=== PATIENT | female | born 1970 | race African-American/Black ===

== ENCOUNTER 2016-08-14 06:10 | Inpatient (IN) | payer OTHER ==
[2016-08-10 17:06] VITALS: BMI 29.2; BMI 64.0
--- NOTE | 2016-08-13 20:34 | PREOPHP ---
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 The patient has bee n having still abnormal Pap smears with the last one with ____ LSIL with nondetected HPV. This emma ent has been complaining of intractable pelvic pain and bleeding. She also has been complaining of pelvic pressure and inability to run, laugh, cough without losing urine. This patient was evaluated , and she was found to have fibroid uterus along with a pelvic prolapse which is grade III. The pat ient also complains of constipation and intractable bleeding where she has very heavy periods with c lots and intermittent bleeding, spotting and pelvic pain. This patient does not want to use c ontrol pills. She has tried different things without alleviation of her pain. She has tried antibi otics as well and control pills, and she would like a permanent solution. The patient was gamal luated and was offered a vaginal hysterectomy with a right salpingectomy if possible since the previ ous left tubal was excised and posterior repair. The patient was advised for a vaginal total hyster ectomy with right salpingectomy and posterior repair, possible ARABELLA in case of difficulties to remove the uterus. There is no bladder lift since we think that the pressure of the uterus on the bladder is creating the incontinence. We will see in the future if she needs it or not. At this time, we will only do the uterus and repair the rectocele. The patient is on hydrochlorothiazide. 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 PAST HISTORY: Fibroid uterus, prolapsed uterus and tubal ligation and exploratory laparotomy. Othe rwise, she had a negative history. Blood pressure is being treated for a while with only diuretics. ALLERGIES: SHE HAS NO ALLERGIES. SOCIAL HISTORY: No history of drugs, smoking or drinking. FAMILY HISTORY: Hypertension. PHYSICAL EXAMINATION: VITAL SIGNS: The patient's vital signs are stable with a blood pressure 120/80. She weighs 182. S he is 5 feet 7 inches. Pulse is 80. She is afebrile. HEAD AND NECK: Normal. CHEST: Clear. HEART: Normal sinus rhythm. LUNGS: Clear. BREASTS: Soft, nontender. No masses. ABDOMEN: Soft, nontender. No masses. PELVIC: ____ vaginal prolapse of the uterus and rectocele with constipation and mild incontinence a nd intractable pain. EXTREMITIES: Normal with normal pulses and no edema. DIAGNOSES: 1. Pelvic prolapse. 2. Intractable pelvic pain and bleeding. 3. Mild incontinence. 4. Rectocele. 5. Constipation. PLAN: She is undergoing a vaginal total hysterectomy, possible right salpingectomy, posterior repai r and possible ARABELLA. She has been advised of the possible risks and possible complications of the pr ocedure with her alternatives and options. Written information was provided. She had no more quest ions and agreed to go ahead with the procedure with full understanding and no more questions. Dictated By: AMITA VICENTE/BAM Conf#: [id number] DID#: [id number]
[~2016-08-14] VITALS: Ht 167.6 cm; Wt 78.8 kg
[2016-08-14] VITALS (18 sets, daily range): BP systolic 101–164; BP diastolic 57–90; PULSE 62–96; RESP 15–20; Ht 167.6 cm; Wt 78.8 kg
[~2016-08-14 06:10] MED LIST: BUPIVACAINE 0.25%/EPI (SDV) 30 ML INJ INJ ONE; CEFAZOLIN 2 GM/50 ML (PMX) 50 ML IVPB ONE; HYDR12.58 PO
[2016-08-14] MEDS ORDERED: BUPIVACAINE 0.25%/EPI (SDV) 30 ML INJ ONE (06:52)
[2016-08-14] MEDS ORDERED: CEFAZOLIN 2 GM/50 ML (PMX) 50 ML IVPB SCH (07:00)
[2016-08-14] MEDS ORDERED: NEOSTIGMINE 3 MG/3 ML SYRINGE ONE ×2 (07:37→10:04)
[2016-08-14] MEDS ORDERED: SUCCINYLCHOLINE CHLORIDE 100 MG/5 ML SYG IV ONE (07:37)
[2016-08-14] MEDS ORDERED: MEPERIDINE 100 MG INJ ONE (07:37)
[2016-08-14] MEDS ORDERED: GLYCOPYRROLATE 0.4 MG INJ ONE ×2 (07:37→10:04)
[2016-08-14] MEDS ORDERED: PROPOFOL 20 ML ONE (07:37)
[2016-08-14] MEDS ORDERED: LIDOCAINE 2% (SDV) 5 ML INJ ONE (07:37)
[2016-08-14] MEDS ORDERED: ROCURONIUM 50 MG INJ ONE (07:37)
[2016-08-14] MEDS ORDERED: ONDANSETRON 4 MG INJ ONE (07:42)
[2016-08-14] MEDS ORDERED: CEFAZOLIN 1 GM INJ ONE (07:42)
[2016-08-14] MEDS ORDERED: METOCLOPRAMIDE 10 MG INJ ONE (07:42)
[2016-08-14] MEDS ORDERED: LABETALOL HCL 20MG INJ IV PRN (09:00)
[2016-08-14] MEDS ORDERED: morphine (1 MG/ML) 10ML SYRINGE IV PRN ×2 (09:00)
[2016-08-14] MEDS ORDERED: HYDROmorphONE (0.2 MG/ML) 10ML SYG IV PRN ×2 (09:00)
[2016-08-14] MEDS ORDERED: hydrALAzine 20 MG INJ IV PRN (09:00)
[2016-08-14] MEDS ORDERED: ONDANSETRON 4 MG INJ IV PRN (09:00)
[2016-08-14] MEDS ORDERED: EPHEDrine SULFATE 50 MG/5 ML SYG IV PRN (09:00)
[2016-08-14] MEDS ORDERED: MEPERIDINE 25 MG INJ IV PRN (09:00)
[2016-08-14] MEDS ORDERED: DIPHENHYDRAMINE 50 MG INJ IV PRN (09:00)
[2016-08-14] MEDS ORDERED: METOCLOPRAMIDE 10 MG INJ IV PRN (09:00)
[2016-08-14] MEDS ORDERED: MIDAZOLAM 1 MG/ML 2 ML INJ IV PRN (09:00)
[2016-08-14] MEDS ORDERED: FENTAnyl 50 MCG/ML VIAL IV PRN ×2 (09:00)
--- NOTE | 2016-08-14 10:14 | OPR ---
Date/Time of Note Date/Time of Note DATE: 08/14/16 TIME: 10:11 Operative Report Procedure Date: August 14, 2016 Preoperative Diagnosis intractable pelvic pain and b;eeding pelvic prolapse mild urinary incontinence large rectocele constipation Postoperative Diagnosis same Surgeon: AMITA SANTOYO MD social and human services assistant: NAMRATA BUTLER MD Anesthesia: general Anesthesiologist: EVANGELINA OCHOA MD Estimated Blood Loss: 10 - 50 ml's Complications: None Pt Condition Post Procedure: stable Disposition: PACU AMITA SANTOYO MD August 14, 2016 10:14
[2016-08-14] MEDS ORDERED: HYDROCODONE/APAP (5/325) TAB PO PRN (10:30)
[2016-08-14] MEDS ORDERED: ZOLPIDEM 5 MG TAB PO PRN (10:30)
[2016-08-14] MEDS ORDERED: BISACODYL (EC) 5 MG TAB PO PRN (10:30)
[2016-08-14] MEDS ORDERED: DIPHENHYDRAMINE 50 MG CAP PO PRN (10:30)
[2016-08-14] MEDS: KETOROLAC 30 MG INJ IV SCH ×3 (10:30→21:33)
[2016-08-14] MEDS ORDERED: HYDROmorphONE 1 MG/ML SYG IV PRN (10:30)
[2016-08-14] MEDS: METOCLOPRAMIDE 10 MG TAB PO SCH ×2 (11:12→17:08)
[2016-08-14] MEDS: LACTATED RINGER'S 1,000 ML IV SCH ×2 (11:13→17:41)
--- NOTE | 2016-08-14 11:13 | OPR ---
DATE OF OPERATION: 08/14/2016 PREOPERATIVE DIAGNOSES: 1. Intractable pelvic pain and bleeding. 2. Pelvic prolapse. 3. Mild urinary incontinence. 4. Large rectocele. 5. Constipation. POSTOPERATIVE DIAGNOSES: 1. Intractable pelvic pain and bleeding. 2. Pelvic prolapse. 3. Mild urinary incontinence. 4. Large rectocele. 5. Constipation. PROCEDURE PERFORMED: Vaginal total hysterectomy, posterior colporrhaphy. SURGEON: Amita Brown MD WHIP SAWYER: Wayne Pacheco MD ANESTHESIOLOGIST: Nikunj Ribeiro MD ANESTHESIA: General. COMPLICATIONS: None. DESCRIPTION OF PROCEDURE: The patient was given general anesthesia, placed in the lithotomy positio n. The perineal and vaginal areas were prepped and draped and a Leslie catheter was placed in the bl adder. The vaginal speculum was applied. There was a very large rectocele and the uterus was prola psed, grade III to IV. There was a large cervix and the uterus retroverted with large fibroids. Th e adnexa were nonpalpable. The cervix was held with John clamps and a circular incision was made a t the cervicovaginal junction with Marcaine solution with epinephrine. The anterior cul-de-sac was found. Then, the posterior cul-de-sac was found. The cardinal ligaments and uterosacral ligaments were clamped with the LigaSure instrument and burned and cut. Then, the uterine vessels were clampe d with the LigaSure instrument, burned and cut. The uterus was inverted and the adnexal pedicle to the ovarian ligament and tube was grasped with the Daphne clamp and the uterus was removed. It was a very boggy uterus with fibroids. [id number]-[id number] sutures were done with #1 Vicryl to both clamps with reinforcement with the same stitch and these sutures were held. The vaginal posterior cul-de-s ac was sutured with [id number] sutures to the cardinal ligaments on both sides and these suture s were held. The peritonealization was done after looking for the right tube that was supposed to b e present, and we could not find. The right ovary was palpated to be normal. The left ovary was no npalpable, possibly was from previous surgery. The peritonealization was done with #1 Vicryl and th e cavity was closed. The cardinal ligaments and adnexal pedicles were tied to ipsilateral side and the sutures were brought up to anterior and posterior cul-de-sac. The vagina was closed vertically with interrupted sutures with #0 Vicryl, and hemostasis was good. The tying of the adnexal pedicle lifted the vaginal cuff pretty well. There was a cystocele that was not strong and with no symptoms, and this will be observed with time, this will not be fixed. There was a large rectocele that needed to be fixed and this was done by marty mace a triangular incision at the perineum, removing a lot of the skin on this area was done. A mi dline incision was made after injection of Marcaine and epinephrine, up to about 7 cm up the vaginal canal. The rectocele was reduced with interrupted sutures with 2-0 Vicryl. The excess of vaginal mucosa was trimmed. The vaginal mucosa was closed with 2-0 Vicryl sutures. At the perineal area, a #1 Vicryl was passed through the levator ani from one side to the other side, lifting the perineum, and the rest of the perineum was closed as a regular episiotomy with 2-0 Vicryl and 3-0 Vicryl. Io doform gauze was left in the vagina along with the Leslie catheter. The blood loss at this time was less than 50 mL. The patient tolerated the procedure well and left the OR awake and stable. Sponge counts, instrument counts were correct, and intravenous antibiotics were given for prophylaxis. Dictated By: AMITA VICENTE/ABM Conf#: [id number] DID#: [id number]
[2016-08-14] MEDS: CEFAZOLIN 1 GM/50 ML (PMX) 50 ML IVPB SCH ×2 (13:23→21:33)
[2016-08-15] VITALS: BP 100/56; PULSE 75; RESP 20
[2016-08-15] MEDS: METOCLOPRAMIDE 10 MG TAB PO SCH ×4 (00:06→18:07)
[2016-08-15] MEDS: LACTATED RINGER'S 1,000 ML IV SCH ×2 (03:22→10:19)
[2016-08-15 04:30] VITALS: BP 114/79; PULSE 63; RESP 20
[2016-08-15] MEDS: KETOROLAC 30 MG INJ IV SCH ×4 (04:35→21:37)
[2016-08-15] MEDS: CEFAZOLIN 1 GM/50 ML (PMX) 50 ML IVPB SCH (05:13)
[2016-08-15 05:36] LABS: ADD SCAN DIFF NO
[2016-08-15 05:45] LABS: BASOPHILS % 0.6 % (0.0-2.0); EOSINOPHILS # 0.1 10^3/ul (0.0-0.5); EOSINOPHILS % 1.2 % (0.0-7.0); HEMATOCRIT 32.3 % (37.0-47.0); HEMOGLOBIN 10.9 g/dl (12.0-16.0); LYMPHOCYTES # 1.3 10^3/ul (0.8-2.9); LYMPHOCYTES % 26.5 % (15.0-51.0); MEAN CORPUSCULAR HEMOGLOBIN 31.1 pg (29.0-33.0); MEAN CORPUSCULAR HGB CONC 33.7 g/dl (32.0-37.0); MEAN PLATELET VOLUME 11.5 fl (7.4-10.4); MONOCYTE # 0.6 10^3/ul (0.3-0.9); MONOCYTES % 11.3 % (0.0-11.0); PLATELET COUNT 178 10^3/UL (140-415); RED BLOOD COUNT 3.51 10^6/ul (4.20-5.40); RED CELL DISTRIBUTION WIDTH 12.2 % (11.5-14.5); WHITE BLOOD COUNT 5.1 10^3/ul (4.8-10.8)
[2016-08-15 06:07] LABS: POTASSIUM 3.8 mmol/L (3.5-5.1)
[2016-08-15 06:10] LABS: CREATININE 0.91 mg/dl (0.44-1.00)
[2016-08-15 08:00] VITALS: BP 114/70; RESP 18
[2016-08-15] MEDS: HYDROCHLOROTHIAZIDE 12.5 MG CAP PO SCH (09:00)
[2016-08-15] MEDS: HYDROCODONE/APAP (5/325) TAB PO PRN ×2 (11:07→18:06)
--- NOTE | 2016-08-15 11:31 | PN ---
Date/Time of Note Date/Time of Note DATE: 08/15/16 TIME: 11:29 Assessment/Plan Lines/Catheters IV Catheter Type (from Nrs): Peripheral IV Leslie in Place (from Nrs): Yes Subjective 24 Hr Interval Summary feels good , tolerating diet. ambulatory, passing gases. afebrile, stable vital signs Constitutional: BM, ambulates, flatus, improved, no complaints, urine output Pain Control: moderate Detailed Summary Eyes: no complaints ENT: no complaints Respiratory: no complaints Cardiovascular: no complaints Gastrointestinal: no complaints Genitourinary: no complaints Musculoskeletal: no complaints Skin: no complaints Neurologic: no complaints Endocrine: no complaints Lymphatic: no complaints Psychological: nl mood/affect, no complaints Immunologic: no complaints Exam/Review of Systems Vital Signs Vitals Vital Signs Date Time Temp Pulse Resp B/P Pulse Ox O2 Delivery O2 Flow Rate FiO2 08/15/16 08:00 98.2 18 114/70 97 08/15/16 04:30 63 Nasal Cannula 2.0 Intake and Output 08/14/16 08/14/16 08/15/16 14:59 22:59 06:59 Intake Total 300 ml 1890 ml 1800 ml Output Total 325 ml 450 ml 2000 ml Balance -25 ml 1440 ml -200 ml Exam Constitutional: alert, oriented, well developed Psych: nl mood/affect, no complaints Head: atraumatic, normocephalic Eyes: EOMI, nl conjunctiva, nl lids, nl sclera ENMT: mucosa pink and moist, nl external ears & nose, nl lips & teeth, nl nasal mucosa & septum Neck: non-tender, supple Respiratory: clear to auscultation, normal air movement Cardiovascular: nl pulses, regular rate and rhythm Gastrointestinal: nl liver, spleen, non-tender, soft Musculoskeletal: nl extremities to inspection, nl gait and stance Extremities: normal pulses Neurological: SPORTS COORDINATOR II-XII intact, nl mental status, nl speech, nl strength Skin: nl turgor, rash or lesions Lymph: nl lymph nodes Results Result Diagram: 08/15/16 0450 08/15/16 0450 AMITA SANTOYO MD August 15, 2016 11:31
[2016-08-15 20:10] VITALS: BP 112/63; RESP 20
[2016-08-16] MEDS: METOCLOPRAMIDE 10 MG TAB PO SCH ×2 (00:03→05:35)
[2016-08-16] MEDS: KETOROLAC 30 MG INJ IV SCH ×2 (04:42→10:00)
--- NOTE | 2016-08-16 07:52 | PD.PPDC ---
PERFORMANCE IMPROVEMENT MANAGER Discharge Instruction Condition Patient Condition: Good Diet Diet: Resume Regular Diet Activity/Restrictions Activity: Normal Activity May Shower Restrictions: No Exercising No Lifting No Driving No Sexual Activity Nothing in the Vagina No [place] No Tampons, douche Follow-up Follow-up with Physician: 2, Week/Weeks Return to clinic for INSECT CONTROL AIDE Instructions: Fever greater than 101 Chills Worsening abdominal pain Excessive Vaginal Bleeding More than 2 pads per hour Unable to tolerate diet Surgical Instructions: Incisional Drainage Incisional Redness AMITA SANTOYO MD Aug 16, 2016 07:52
[2016-08-16 08:30] VITALS: BP 120/76; RESP 18
--- NOTE | 2016-08-16 09:33 | DS ---
DATE OF ADMISSION: 08/14/2016 DATE OF DISCHARGE: 08/16/2016 HISTORY: This is a 46-year-old female, 6, para 4, abortions 2 with a history of an explorat ory lap, salpingectomy, pelviscopic left tubal fulguration, and excision of the tube and a few colpo scopies, history of tubal ligation, abnormal Pap smears and a fibroid uterus, abnormal uterine bleed ing, intractable bleeding and intractable pelvic pain. The patient also had a pelvic prolapse with rectocele that was moderate to severe and mild cystourethrocele with mild incontinence. This patien t was offered a vaginal hysterectomy and a posterior repair, which was done without complications. HOSPITAL COURSE: The patient was afebrile, ambulatory the next day. She underwent the procedure wi thout complications. She had normal blood work at the time of discharge. She was with a hemoglobin of 10.9 and hematocrit of 32.3. She was afebrile with normal vital signs and ambulatory, toleratin g diet, voiding well, passing gases with bowel movement. This patient had been with pain control wi th her medications and with p.o. medications, and she is being sent home on her second postoperative day with instructions of what to do at home, with omeprazole, ibuprofen and Tylenol No. 3 p.r.n. pa in. She was stable, in good condition, ambulatory, and in no pain at the time of discharge, to be s een in the office at any time if she had any problems and/or a week to 10 days. She has been advise d, and she is very happy to go home. POSTOPERATIVE DIAGNOSES: 1. Pelvic prolapse. 2. Fibroid uterus. 3. Intractable menometrorrhagia and bleeding. 4. Pelvic pain, intractable as well. 5. Cystourethrocele, mild. 6. Rectocele, moderate to severe. PROCEDURES DONE: Vaginal hysterectomy, posterior colporrhaphy. COMPLICATIONS: None. Dictated By: AMITA VICENTE/BAM Conf#: [id number] DID#: [id number]
[2016-08-16] MEDS: HYDROCHLOROTHIAZIDE 12.5 MG CAP PO SCH (10:00)
== END 2016-08-16 11:15 | disposition home or self-care (01) | DRG 743 ==
LOC: REC 06:10 → MS1 11:03
PROVIDERS: ADMIT Obstetrics & Gynecology; ATTEND Obstetrics & Gynecology
PROC: 0UTC7ZZ Resection of Cervix, Via Natural or Artificial Opening (ICD-10-PCS; 2016-08-14)
PROC: 0JQC0ZZ Repair Pelvic Region Subcutaneous Tissue and Fascia, Open Approach (ICD-10-PCS; 2016-08-14)
PROC: 0UT97ZZ Resection of Uterus, Via Natural or Artificial Opening (ICD-10-PCS; principal; 2016-08-14 07:30)
DX: N81.3 Complete uterovaginal prolapse (principal); D25.1 Intramural leiomyoma of uterus; R32 Unspecified urinary incontinence; K59.00 Constipation, unspecified; R10.2 Pelvic and perineal pain; N92.1 Excessive and frequent menstruation with irregular cycle; N87.9 Dysplasia of cervix uteri, unspecified
CPT/HCPCS: 80051; 82565; 84520; 85025; 86850; 86900; 86901; 86920; 87086; 88305; J0690; J1170; J1885; J2175; J2405; J2710; J2765; J7120; J7999

== ENCOUNTER 2016-08-30 15:03 | Outpatient (CLI) | payer OTHER ==
[~2016-08-30] VITALS: Ht 167.6 cm; Wt 81.4 kg
[2016-08-30 14:57] VITALS: BP 112/70; PULSE 91; RESP 18; Ht 167.6 cm; Wt 81.4 kg
[~2016-08-30 15:03] MED LIST changes: -BUPIVACAINE 0.25%/EPI (SDV) 30 ML INJ INJ ONE; -CEFAZOLIN 2 GM/50 ML (PMX) 50 ML IVPB ONE
--- NOTE | 2016-08-30 15:31 | PN ---
Date/Time of Note Date/Time of Note DATE: 08/30/16 TIME: 15:26 Outpatient Progress Note Chief Complaint Back pain/status post vaginal hysterectomy and colporrhaphy HPI Back pain/patient has lumbosacral area discomfort, no fall or injury, no tingling no numbness, no loss of bladder or bowel control, recent onset, patient had increase exercise and activity yesterday, Status post vaginal hysterectomy and colporrhaphy/patient had pelvic prolapse, patient also had mild uterine incontinence, had large rectocele, patient had surgery, laparoscopically, no fever chill, no bleeding, no discharge, feeling better, Review of Systems Const: No Fever, no chills, no Wt. loss, no Fatigue, normal appetite, no diaphoresis. Eyes: No pain, no discharge, no redness, no visual change, no foreign body. ENT: No pain, no bleeding, no congestion, no sore throat, no dysphagia, no discharge or rhinitis. Lymph: No adenopathy, no tender nodes, no lymphedema. Resp: No SOB, no cough, no sputum, no wheezing, no chest pain. CV: No chest pain, no palpitaions, no CARABALLO, no PND, no edema. GI: Normal appetite, no pain, no nausea, no vomiting, no diarrhea, no blood, no constipation patient has also lower abdominal discomfort,. : No frequency, no urgency, no dysuria, no hematuria, no flank pain, no discharge, no bleeding. Musc: Lower back pain, no neck pain, no knee pain, no restricted ROM. Skin: No rash, no skin lesions, no erythema, no laceration, no bruising, no pruritus. Neuro: No ROSADO, no dizziness, no syncope, no seizure, no focal-weakness. Endo: No polyuria, no polydypsia, no dry-skin, no temp-intolerance. Psych: No hallucinations, no depression, no anxiety, no suicidal ideation. Ext: No edema, no pain, no ulcer, no weakness. Physical Exam Vital Signs Date Time Temp Pulse Resp B/P Pulse Ox O2 Delivery O2 Flow Rate FiO2 08/30/16 14:57 98.6 91 18 112/70 95 Room Air General Appearance: A 46 year-old female who appears well-developed, well- nourished, in no acute distress. HEENT: Head normocephalic, atraumatic. Pupils equal, round, reactive to light and accommodate. Sclerae are no jaundice. Nasal turbinates pink without erythema or nasal discharge. Mucous membranes pink and moist without lesions. Oropharynx clear without any exudate or discharge. NECK: Supple. Trachea midline, No thyromegaly, No cervical lymphadenopathy, No mass, No carotid bruits, No JVD, Carotid pulses 2+ bilaterally. PULMONARY: Clear to auscultaion bilaterally, No retractions, Chest expansion symmetric bilaterally, no rales, no ronchi, no dulness on percussion. CARDIAC: Normal SI and S2, Regular rate and rythm, no murmur, gallop, or rub. GASTROINTESTINAL: Abdomen is soft, non-tender, Non Rigid, No distention, Positive bowel sounds x4 quadrants, Liver normal. Patient has lower abdominal discomfort, laparoscopy SKIN: Warm, dry, no rash, no bruise, no echmosis. EXTREMITIES: Bilateral lower extremities normal, no edema, no phlabitus, pulse palpable, no contracture. MUSCULOSKELETAL: Spine Normal, patient has lower lumbosacral area discomfort, normal range of motion, No swelling, no deformity, no clubbing, or cyanosis, the patient has no edema to bilateral lower extremities, dorsalis pedis pulses palpable bilaterally. NEUROLOGIC: The patient is awake, alert, oriented, responding to yes/no questions appropriately, moving all extremities, cranial nerve intact, normal strenght, normal power, normal coordination, normal gait. Allergies Uncoded Allergies: NKDA (Allergy, Unknown, 10/13/14) NO KNOWN DRUG AND FOOD ALLERGIES. PMH No smoking no drinking, Social Hx Noncontributory Family Hx Noncontributory Assessment/Plan Impression Back pain/status post vaginal hysterectomy and colporrhaphy Plan Patient education done, Patient advised to increase activity very slowly, no lifting no pulling or pushing, patient already complaining of lower back pain, patient had overdone yesterday on activity, Patient was only taking Motrin 600 mg 4 times daily, still has a pain, patient was not taking codeine, patient advised to take half tablet of codeine to 3 times a day, and also add milk of magnesia 30-50 cc pill p.o. daily, and avoid constipation, Patient to follow with the [employer] [facility] OPERATOR, If any fever or any discomfort to contact us, Medications Home Meds Reported Medications Hydrochlorothiazide* (Hydrochlorothiazide*) 12.5 Mg Tablet, 12.5 MG PO DAILY, TAB 10/13/14 CONSTANTINO MARTINO MD Aug 30, 2016 15:31
== END 2016-08-30 16:42 | disposition home or self-care (01) ==
LOC: DCC 15:03
PROVIDERS: ATTEND Internal Medicine
DX: M54.5 Low back pain (principal); Z90.710 Acquired absence of both cervix and uterus

== ENCOUNTER 2016-09-07 14:15 | Outpatient (CLI) | payer OTHER ==
[~2016-09-07] VITALS: Ht 167.6 cm; Wt 82.5 kg
[2016-09-07 14:28] VITALS: BP 111/65; PULSE 80; RESP 16; Ht 167.6 cm; Wt 82.5 kg
== END 2016-09-07 16:45 | disposition home or self-care (01) ==
LOC: DCC 14:15
PROVIDERS: ATTEND Internal Medicine
DX: M54.5 Low back pain (principal); Z90.710 Acquired absence of both cervix and uterus